=== PATIENT | female | born 1980 ===

== ENCOUNTER → 2024-11-13 08:26 | Outpatient (CLI) | payer OTHER, SELFPAY ==
--- NOTE | 2024-11-13 08:30 | DI.MRI.S_ITS ---
PROCEDURE: MR ANKLE RT WO CON INDICATIONS: ACHILLES TENDONITIS TECHNIQUE: Noncontrast sagittal T1 spin echo and T2 fast spin echo with fat saturation, axial proton density fast spin echo and T2 fast spin echo with fat saturation, coronal T1 spin echo and T2 fast spin echo with fat saturation through the ankle/hindfoot. COMPARISON: None. FINDINGS: Image quality: Excellent. Bones: Mild marrow edema is present at the posterior calcaneal tuberosity (6/12). The anterior process of the calcaneus and lateral process of the talus are intact. No talar dome osteochondral defect is seen. Joints: There is no significant joint effusion. The tibiotalar and subtalar joints are preserved. Small osteophytes are present at the dorsal talar head/neck and anterior tibial plafond (5/14). Sinus tarsi: The sinus tarsi signal is normal. Syndesmotic ligaments: There is low signal thickening and heterotopic ossification of the anterior-inferior tibiofibular ligament. The posterior-inferior tibiofibular ligament is intact. Lateral collateral ligament: There is mild low signal thickening of the anterior talofibular ligament. The lateral collateral ligament complex is otherwise within normal limits. Deltoid ligament: The visualized components of the deltoid ligament, that being the posterior tibiotalar and tibiospring ligaments, are normal. Calcaneonavicular spring ligament: The superomedial component of the calcaneonavicular spring ligament is grossly intact. Tendons: Status post prior repair with suture anchors at the calcaneal tuberosity, there is low signal thickening of the Achilles tendon up to 1.3 cm in the AP dimension (3/29; /) without loss of the suture anchor-tendon integrity. There is a chronic split tear morphology of the peroneus brevis tendon with distal reconstitution. The extensor, flexor and peroneal tendons are otherwise normal. The peroneal tendons are appropriately situated within the retromalleolar groove, and the superficial peroneal retinaculum is intact. Plantar aponeurosis: There is mild thickening, intrasubstance signal, and perifascial edema involving the central band of the plantar fascia at the heel (6/15) in conjunction with a small enthesophyte. Plantar musculature: There are no findings of denervation involving the plantar muscles of the foot. Nerves: The visualized nerves are unremarkable. Other: Small amount of fluid at the retrocalcaneal bursa (12/11). IMPRESSION: 1. Status post prior Achilles tendon repair with residual tendinosis and mild retrocalcaneal bursitis. 2. 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 3. Chronic sprain of the anterior talofibular ligament. 4. Chronic split tear of the peroneus brevis with distal reconstitution. 5. Mild plantar fasciitis of the central band at the heel. Dictated by: Triston George M.D. on 11/14/2024 at 13:01 Approved by: Triston George M.D. on 11/14/2024 at 13:20
== END ==
LOC: MRI 08:29
PROVIDERS: Referring Provider Podiatrist; Visit Provider Podiatrist
DX: S93.431A Sprain of tibiofibular ligament of right ankle, initial encounter (principal); S93.491A Sprain of other ligament of right ankle, initial encounter; S86.311A Strain of muscle(s) and tendon(s) of peroneal muscle group at lower leg level, right leg, initial encounter; M76.61 Achilles tendinitis, right leg; M79.671 Pain in right foot; X58.XXXA Exposure to other specified factors, initial encounter
CPT/HCPCS: 73721